=== PATIENT | female | born 1935 | race Caucasian/White ===

== ENCOUNTER 2018-11-22 13:27 | Emergency (ER) | payer MEDICARE, MEDICAID, OTHER ==
[~2018-11-22] VITALS: Ht 147.3 cm; Wt 48.0 kg
[~2018-11-22 13:27] MED LIST: CLOR7.5T3 PO; DEXL60CA3 PO; DILT120C19 PO; DIPH-423 PO; GUAI473S11 PO; LEVO75TA7 PO; MUPI1OIN8 BOTHNARES; PHEN-716 PO; SERT100T10 PO; TRAM50TA2 PO
[2018-11-22] MEDS ORDERED: CLOR7.5T3 PO (13:50)
[2018-11-22] MEDS ORDERED: SULF1TAB49 PO (13:50)
[2018-11-22] MEDS ORDERED: LORazepam 1 MG tablet PO ONE (14:40)
[2018-11-22 14:43] LABS: CLARITY,URINE CLEAR (Clear); COLOR,URINE YELLOW (Yellow); GLUCOSE, URINE NEGATIVE (Neg); KETONES,URINE NEGATIVE (Neg); LEUKOCYTE ESTERASE ,URINE MODERATE (Neg); NITRITES, URINE NEGATIVE (Neg); OCCULT BLOOD,URINE NEGATIVE (Neg); PH,URINE 6.5 (4.8-8.0); PROTEIN,URINE NEGATIVE (Neg); UA COLLECTION TYPE CLN CATCH MIDSTREAM; UROBILINOGEN,URINE 0.2 E.U/dL (0.2-1.0)
[2018-11-22 14:49] LABS: BACTERIA,URINE NONE SEEN /HPF (Neg); MUCUS STRANDS NONE SEEN /LPF (Neg); RBC,URINE NONE SEEN /HPF (0-2); SQUAMOUS EPITHELIAL CELL,UR NONE SEEN /LPF (FEW)
[2018-11-22] MEDS ORDERED: BACL PO (15:14)
[2018-11-22 15:24] VITALS: BP 148/79
== END 2018-11-22 15:25 | disposition home or self-care (01) ==
LOC: ER 13:27
DX: F41.9 Anxiety disorder, unspecified (principal); L08.9 Local infection of the skin and subcutaneous tissue, unspecified; K21.9 Gastro-esophageal reflux disease without esophagitis; G89.29 Other chronic pain; F32.9 Major depressive disorder, single episode, unspecified; Z76.0 Encounter for issue of repeat prescription; Z98.890 Other specified postprocedural states; Z88.1 Allergy status to other antibiotic agents; Z79.899 Other long term (current) drug therapy
CPT/HCPCS: 81001; 87088; 99284

== ENCOUNTER 2020-12-18 17:22 | Emergency (ER) | payer MEDICARE, BC ==
[~2020-12-18] VITALS: Ht 142.2 cm; Wt 48.2 kg
[~2020-12-18 17:22] MED LIST changes: +BACL PO
[2020-12-18] MEDS ORDERED: normal saline 1000ML IV soln IVB ONE (18:45)
[2020-12-18 19:26] LABS: BASOPHILS % (AUTO) 0.3 % (0-1); EOSINOPHILS % (AUTO) 0.6 % (0-6); HEMATOCRIT 42.7 % (35.0-45.0); HEMOGLOBIN 13.9 g/dl (12.0-16.0); LYMPHOCYTES # (AUTO) 0.9 X10'3 (1.1-4.8); LYMPHOCYTES % (AUTO) 33.7 % (21-51); MEAN CORPUSCULAR HEMOGLOBIN 31.2 PG (27.0-31.0); MEAN CORPUSCULAR HGB CONC 32.5 g/dL (33.0-36.5); MEAN CORPUSCULAR VOLUME 95.8 FL (78-98); MEAN PLATELET VOLUME 9.8 FL (7.4-10.4); MONOCYTES # (AUTO) 0.3 X10'3 (0-0.9); MONOCYTES % (AUTO) 10.6 % (2-12); NEUTROPHILS # (AUTO) 1.4 X10'3 (1.8-7.7); NEUTROPHILS % (AUTO) 54.8 % (42-75); PLATELET COUNT 217 X10'3 (140-440); RED BLOOD COUNT 4.45 X10'6 (4.20-5.60); RED CELL DISTRIBUTION WIDTH 15.6 % (11.5-14.5); WHITE BLOOD COUNT 2.6 X10'3 (4.5-11.0)
[2020-12-18 19:39] LABS: ALANINE AMINOTRANSFERASE 11 U/L (12-78); ALBUMIN 3.7 G/DL (3.4-5.0); ALBUMIN/GLOBULIN RATIO 1.1 (1.1-1.5); ALKALINE PHOSPHATASE 55 IU/L (46-116); ANION GAP 11 (8-16); ASPARTATE AMINO TRANSFERASE 16 U/L (10-37); BILIRUBIN,TOTAL 0.6 MG/DL (0.1-1.0); BLOOD UREA NITROGEN 14 MG/DL (7-18); BUN/CREATININE RATIO 10.9 (6.6-38.0); CALCIUM 8.5 MG/DL (8.5-10.1); CHLORIDE 106 MMOL/L (99-107); CREATININE 1.29 MG/DL (0.40-0.90); GLUCOSE 91 MG/DL (70-104); POTASSIUM 3.3 MMOL/L (3.5-5.1); SODIUM 144 MMOL/L (135-145); TOTAL CARBON DIOXIDE 26.9 MMOL/L (24-32); TOTAL PROTEIN 7.2 G/DL (6.4-8.2); eGFR 39 ML/MIN
[2020-12-18 19:45] VITALS: BP 152/63
[2020-12-18] MEDS ORDERED: LORA-269 PO (20:44)
[2020-12-19 11:08] LABS: TOTAL CELLS COUNTED 100
[2020-12-19 11:09] LABS: MONOCYTES % (MANUAL) 12 % (2-12)
[2020-12-19 11:11] LABS: LARGE PLATELETS FEW; PLATELET ESTIMATE NORMAL
== END 2020-12-18 21:27 | disposition home or self-care (01) ==
LOC: ER 17:23
DX: R13.10 Dysphagia, unspecified (principal); K21.9 Gastro-esophageal reflux disease without esophagitis; E03.9 Hypothyroidism, unspecified; G89.29 Other chronic pain; Z87.01 Personal history of pneumonia (recurrent); Z98.890 Other specified postprocedural states; Z88.1 Allergy status to other antibiotic agents; Z79.2 Long term (current) use of antibiotics; Z79.899 Other long term (current) drug therapy; Z86.16 Personal history of COVID-19
CPT/HCPCS: 36415; 71045; 80053; 84484; 85007; 85025; 93005; 96360; 99285; J7030

== ENCOUNTER 2021-08-06 23:46 | Emergency (ER) | payer BC, MEDICAID ==
[~2021-08-06] VITALS: Ht 142.2 cm; Wt 45.9 kg
[~2021-08-06 23:46] MED LIST changes: +LORA-269 PO; +SERT-434 PO; -SERT100T10 PO
[2021-08-06] MEDS ORDERED: ondansetron/PF 4mg/2ml inj IV ONE (23:50)
[2021-08-06] MEDS ORDERED: normal saline 1000ML IV soln IVB ONE (23:50)
[2021-08-07 00:17] LABS: BASOPHILS % (AUTO) 0.4 % (0-1); EOSINOPHILS # (AUTO) 0.1 X10'3 (0-0.9); EOSINOPHILS % (AUTO) 1.5 % (0-6); HEMATOCRIT 38.3 % (35.0-45.0); HEMOGLOBIN 12.7 g/dl (12.0-16.0); LYMPHOCYTES # (AUTO) 0.6 X10'3 (1.1-4.8); LYMPHOCYTES % (AUTO) 14.9 % (21-51); MEAN CORPUSCULAR HEMOGLOBIN 31.2 PG (27.0-31.0); MEAN CORPUSCULAR HGB CONC 33.2 g/dL (33.0-36.5); MEAN CORPUSCULAR VOLUME 93.8 FL (78-98); MEAN PLATELET VOLUME 8.9 FL (7.4-10.4); MONOCYTES # (AUTO) 0.4 X10'3 (0-0.9); MONOCYTES % (AUTO) 10.4 % (2-12); NEUTROPHILS # (AUTO) 3.1 X10'3 (1.8-7.7); NEUTROPHILS % (AUTO) 72.8 % (42-75); PLATELET COUNT 265 X10'3 (140-440); RED BLOOD COUNT 4.08 X10'6 (4.20-5.60); WHITE BLOOD COUNT 4.3 X10'3 (4.5-11.0)
[2021-08-07 00:37] LABS: ALBUMIN 3.7 G/DL (3.4-5.0); ALKALINE PHOSPHATASE 113 IU/L (46-116); ANION GAP 12 (8-16); ASPARTATE AMINO TRANSFERASE 17 U/L (10-37); BILIRUBIN,TOTAL 0.6 MG/DL (0.1-1.0); BLOOD UREA NITROGEN 13 MG/DL (7-18); CALCIUM 8.3 MG/DL (8.5-10.1); CHLORIDE 104 MMOL/L (99-107); CREATININE 1.62 MG/DL (0.40-0.90); GLUCOSE 127 MG/DL (70-104); SODIUM 139 MMOL/L (135-145); TOTAL CARBON DIOXIDE 22.9 MMOL/L (24-32); TOTAL PROTEIN 7.5 G/DL (6.4-8.2); eGFR 30 ML/MIN
[2021-08-07 00:39] LABS: TROPONIN I < 0.04 NG/ML (0.0-0.05)
[2021-08-07 00:41] LABS: ALANINE AMINOTRANSFERASE < 6 U/L (12-78)
[2021-08-07] MEDS ORDERED: mag hydrox/Alum hydrox/simeth 30ml oral suspension PO ONE (02:10)
[2021-08-07] MEDS ORDERED: famotidine/PF 10 mg/ml inj IV ONE (02:10)
[2021-08-07] MEDS ORDERED: sucralfate 1gm/10ml UD suspension PO SCH (02:10)
[2021-08-07] MEDS ORDERED: pantoprazole 40 MG vial IV ONE (02:10)
[2021-08-07] MEDS ORDERED: LIDOcaine Viscous 15ml cup MM PRN (02:10)
[2021-08-07] MEDS ORDERED: sucralfate 1 gm tablet PO ONE (02:15)
--- NOTE | 2021-08-07 02:31 | NUR ---
Dr. Spencer updated that Pt remains nauseaus and is having dry heave episodes and continues with abd pain. GI cocktail and reglan now ordered. reports Pt is treat and DC. Pt assisted to bathroom in as she is very weak. States she normally ambulates wtih no problem and no assistive devices.
[2021-08-07] MEDS ORDERED: metoclopramide 5 mg/ml inj IV ONE (02:40)
[2021-08-07 02:53] LABS: CLARITY,URINE CLEAR (Clear); COLOR,URINE YELLOW (Yellow); GLUCOSE, URINE NEGATIVE (Neg); PROTEIN,URINE NEGATIVE (Neg); UA COLLECTION TYPE CLN CATCH MIDSTREAM
[2021-08-07 02:54] LABS: KETONES,URINE TRACE mg/dl (Neg); LEUKOCYTE ESTERASE ,URINE NEGATIVE (Neg); NITRITES, URINE NEGATIVE (Neg); OCCULT BLOOD,URINE TRACE-LYSED (Neg); UROBILINOGEN,URINE 0.2 E.U/dL (0.2-1.0)
[2021-08-07 03:06] LABS: BACTERIA,URINE NONE SEEN /HPF (Neg); MUCUS STRANDS NONE SEEN /LPF (Neg); RBC,URINE NONE SEEN /HPF (0-2); SQUAMOUS EPITHELIAL CELL,UR MODERATE /LPF (FEW); WBC,URINE 0-4 /HPF (0-4)
--- NOTE | 2021-08-07 04:26 | NUR ---
DR DE OLIVEIRA UPDATED THAT PT REPORTS SHE IS STILL FEELING BAD (MILD NAUSEA, ABD PAIN, GENERALIZED PAIN) AND SHE STATES "I DONT FEEL LIKE I CAN GO HOME LIKE THIS". STATES SHE LIVEW WITH HER GRANDSON AND THAT HE DOES NOT DRIVE. REPORTS SHE CAN TAKE A CAB HOME. STATES SHE HAS ANOTHER FRIEND THAT MAY BE ABLE TO GET HER. VERBAL RECEIVED FOR ATIVAN 0.5 MG IV X1 NOW.
[2021-08-07] MEDS ORDERED: LORazepam 2 mg/ml vial IV ONE (04:30)
--- NOTE | 2021-08-07 05:30 | NUR ---
PT REPORTS SHE IS CALMER NOW AFTER GETTING ATIVAN 0.5 MG IV 30 MINI AGO AND THAT THE NAUSEA HAS LESSENED. VSS.
[2021-08-07 07:18] VITALS: BP 143/68
[2021-08-08] MEDS ORDERED: MIRT7.5T11 PO (19:25)
[2021-08-08] MEDS ORDERED: HYDR50TA65 PO (19:25)
[2021-08-08] MEDS ORDERED: ONDA4TAB6 PO (19:25)
[2021-08-09] MEDS ORDERED: LEVO25TA7 PO (00:07)
[2021-08-14] MEDS ORDERED: SERT-433 PO (10:35)
[2021-08-14] MEDS ORDERED: MELA3TAB39 PO (10:35)
[2021-08-14] MEDS ORDERED: LEVO125T8 PO (15:12)
[2021-08-14] MEDS ORDERED: CYAN100087 PO (15:12)
[2021-08-14] MEDS ORDERED: FOLI0.4T6 PO (15:14)
== END 2021-08-07 07:18 | disposition home or self-care (01) ==
LOC: ER 23:46
DX: K52.9 Noninfective gastroenteritis and colitis, unspecified (principal); R11.2 Nausea with vomiting, unspecified; K21.9 Gastro-esophageal reflux disease without esophagitis; E03.9 Hypothyroidism, unspecified; G89.29 Other chronic pain; F41.9 Anxiety disorder, unspecified; F32.9 Major depressive disorder, single episode, unspecified; Z87.01 Personal history of pneumonia (recurrent); Z98.890 Other specified postprocedural states; Z88.1 Allergy status to other antibiotic agents; Z79.2 Long term (current) use of antibiotics; Z79.899 Other long term (current) drug therapy
CPT/HCPCS: 36415; 80053; 81001; 84484; 85025; 96361; 96374; 96375; 99285; C9113; J2060; J2405; J2765; J3490; J7030